=== PATIENT | female | born 1970 | race Caucasian/White ===

== ENCOUNTER → 2021-02-09 | Outpatient (CLI) | payer OTHER ==
[~2021-02-09] MED LIST: GADOTERATE 10 MMOL/20 ML VIAL ONE
== END | disposition home or self-care (01) ==
LOC: CFH 11:44
PROVIDERS: ATTEND Surgery
DX: C50.812 Malignant neoplasm of overlapping sites of left female breast (principal)
CPT/HCPCS: 77049; A9575; C8937; C8908

== ENCOUNTER → 2021-02-17 | Outpatient (CLI) | payer OTHER | END | disposition home or self-care (01) | LOC: STAR 13:06 | PROVIDERS: ATTEND Surgery | DX: Z20.822 Contact with and (suspected) exposure to COVID-19 (principal); C50.812 Malignant neoplasm of overlapping sites of left female breast | CPT/HCPCS: U0003; U0005 ==

== ENCOUNTER 2021-02-23 12:39 | Day surgery (SDC) | payer OTHER ==
[~2021-02-23] VITALS: Ht 165.1 cm; Wt 81.8 kg
[~2021-02-23 12:39] MED LIST changes: +BACITRACIN 50,000 UNIT ONE; +BUPIVACAINE/PF 0.5% ONE; +CEFAZOLIN 1,000 MG ONE; +EPINEPHRINE 1 MG/ML, 1ML ONE; -GADOTERATE 10 MMOL/20 ML VIAL ONE; +GENTAMICIN 80 MG/2 ML ONE; +ISOSULFAN BLUE 10 MG/ML, 5ML IV ONE
[2021-02-23] MEDS ORDERED: MIDAZOLAM 1 MG/ML, 2ML ONE (13:02)
[2021-02-23] MEDS ORDERED: FENTANYL PF 250 MCG/5ML ONE ×2 (13:02→17:47)
[2021-02-23 13:23] LABS: HCG UR SG 1.005 (1.003-1.030)
[2021-02-23] MEDS ORDERED: CHLORHEXIDINE 15 ML UDC ONE (14:39)
[2021-02-23] MEDS ORDERED: LACTATED RINGERS 1,000 ML IV SCH (15:00)
[2021-02-23] MEDS ORDERED: CHLORHEXIDINE 15 ML UDC PO ONE (15:00)
[2021-02-23] MEDS ORDERED: SODIUM BICARBONATE 4.2%, 5ML ONE (16:06)
[2021-02-23] MEDS ORDERED: GADOTERATE 10 MMOL/20 ML VIAL ONE (16:06)
[2021-02-23] MEDS ORDERED: LIDOCAINE 1%, 20ML ONE (16:06)
[2021-02-23] MEDS ORDERED: LIDOCAINE 1%-EPI 1:100K, 20ML ONE (16:06)
[2021-02-23 16:07] LABS: BASOPHILS % (AUTO) 1 % (0-1); EOSINOPHILS % (AUTO) 1 % (1-7); LYMPHOCYTES % (AUTO) 30 % (22-44); MEAN CORPUSCULAR HEMOGLOBIN 28.6 pg (27.0-34.8); MEAN CORPUSCULAR HGB CONC 33.1 g/dL (32.4-35.8); MEAN PLATELET VOLUME 10.1 fL (7.4-10.4); MONOCYTES % (AUTO) 7 % (2-9); NEUTROPHILS % (AUTO) 61 % (42-75); PLATELET COUNT 177 x10^3/uL (130-400); RED BLOOD COUNT 5.01 x10^6/uL (3.82-5.3); RED CELL DISTRIBUTION WIDTH 13.7 % (9.6-15.2)
[2021-02-23] MEDS ORDERED: CEFAZOLIN 1,000 MG ONE (16:09)
[2021-02-23] MEDS ORDERED: SUCCINYLCHOLINE 20 MG/ML, 10ML ONE (16:09)
[2021-02-23] MEDS ORDERED: PROPOFOL 10 MG/ML, 20ML ONE (16:09)
[2021-02-23] MEDS ORDERED: ONDANSETRON 2MG/ML, 2ML ONE (16:09)
[2021-02-23] MEDS ORDERED: ROCURONIUM 10MG/ML,5ML ONE (16:09)
[2021-02-23] MEDS ORDERED: DEXAMETHASONE 4 MG/ML, 1ML ONE (16:09)
[2021-02-23 16:17] LABS: MD NO
[2021-02-23] MEDS ORDERED: METOCLOPRAMIDE 5 MG/ML, 2ML IV PRN (18:30)
[2021-02-23] MEDS ORDERED: MEPERIDINE/PF 25MG/0.5ML IVPush PRN (18:30)
[2021-02-23] MEDS ORDERED: KETOROLAC 30 MG/1 ML IV PRN (18:30)
[2021-02-23] MEDS ORDERED: LABETALOL 5MG/ML, 20ML IV PRN (18:30)
[2021-02-23] MEDS ORDERED: HYDROmorphone 1 MG/ML, 1ML INJ IV PRN (18:30)
[2021-02-23] MEDS ORDERED: OXYcodone 5 MG/5 ML ORAL.SOL UDC PO PRN (18:30)
[2021-02-23] MEDS ORDERED: hydrALAzine 20 MG/ML, 1ML IV PRN (18:30)
[2021-02-23] MEDS ORDERED: DIAZEPAM 5 MG/ML, 2ML IV PRN ×2 (18:30)
[2021-02-23] MEDS ORDERED: PROMETHAZINE 25 MG/ML, 1ML IV PRN (18:30)
[2021-02-23] MEDS ORDERED: ONDANSETRON 2MG/ML, 2ML IVPush PRN (18:30)
[2021-02-23] MEDS ORDERED: ALBUTEROL SULFATE 2.5 MG/3 ML NPPB PRN (18:30)
[2021-02-23] MEDS ORDERED: MEPERIDINE/PF 25MG/ML,1ML ONE (18:44)
[2021-02-23] MEDS ORDERED: OXYcodone 5 MG/5 ML ORAL.SOL UDC ONE (18:45)
[2021-02-23] MEDS ORDERED: FENTANYL PF 100 MCG/2ML ONE (18:59)
[2021-02-23] MEDS: FENTANYL PF 100 MCG/2ML IV PRN ×2 (19:00→19:05)
== END 2021-02-23 21:20 | disposition home or self-care (01) ==
LOC: RAD 12:39 → EDSTATUS 15:00 → CFH 21:20
PROVIDERS: ATTEND Surgery
DX: C50.812 Malignant neoplasm of overlapping sites of left female breast (principal); N65.1 Disproportion of reconstructed breast; Z17.0 Estrogen receptor positive status [ER+]; Z79.899 Other long term (current) drug therapy
CPT/HCPCS: 15570; 19287; 19301; 19318; 36415; 38525; 38792; 76098; 77065; 81025; 85025; 88307; 88329; 88333; 88342; A9541; A9575; C1729; J0171; J0330; J0690; J1100; J1580; J2175; J2250; J2405; J2704; J3010; J7120; C8937

== ENCOUNTER 2021-03-17 08:46 | Outpatient (CLI) | payer OTHER | END 2021-03-17 23:59 | disposition home or self-care (01) | LOC: ROC 08:46 | PROVIDERS: ATTEND Radiology Radiation Oncology | DX: C50.412 Malignant neoplasm of upper-outer quadrant of left female breast (principal); Z17.0 Estrogen receptor positive status [ER+]; Z79.899 Other long term (current) drug therapy | CPT/HCPCS: 99214; G0463 ==

== ENCOUNTER 2021-06-08 07:46 | Outpatient (CLI) | payer OTHER | END 2021-06-08 23:59 | disposition home or self-care (01) | LOC: ROC 07:46 | PROVIDERS: ATTEND Radiology Radiation Oncology | DX: C50.412 Malignant neoplasm of upper-outer quadrant of left female breast (principal); Z17.0 Estrogen receptor positive status [ER+]; Z79.899 Other long term (current) drug therapy | CPT/HCPCS: 99213; G0463 ==